=== PATIENT | female | born 1975 | race Caucasian/White ===

== ENCOUNTER 2020-08-05 11:36 | Emergency (ER) | payer OTHER ==
[2020-08-05] MEDS ORDERED: Boostrix 0.5 ML (Tdap) VIAL ONE (12:03)
[2020-08-05] MEDS ORDERED: Lidocaine 1% (PF) 30 ML VIAL ONE (13:37)
[2020-08-05] MEDS ORDERED: Bacitracin 1 PK ONE (14:35)
== END 2020-08-05 15:00 | disposition home or self-care (01) ==
LOC: CSHERS 11:36
DX: S01.351A Open bite of right ear, initial encounter (principal); E03.9 Hypothyroidism, unspecified; Z23 Encounter for immunization; W54.0XXA Bitten by dog, initial encounter
CPT/HCPCS: 12052; 90471; 90715; J2001